=== PATIENT | female | born 2000 | race Two or more races ===

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

== ENCOUNTER 2018-05-28 13:33 | Emergency (ER) | payer MEDICAID ==
[~2018-05-28] VITALS: Ht 170.2 cm; Wt 113.8 kg
[2018-05-28 13:53] VITALS: BP 126/57
== END 2018-05-28 14:52 | disposition home or self-care (01) ==
LOC: ED 14:46
DX: H65.03 Acute serous otitis media, bilateral (principal)
CPT/HCPCS: 99283